=== PATIENT | female | born 1960 | race American Indian/Alaskan Native ===

== ENCOUNTER 2018-04-15 11:59 | Emergency (ER) | payer OTHER, SELFPAY ==
[2018-04-15 12:14] VITALS: BP 133/82; PULSE 81; RESP 17; TEMP 36.8; O2SAT 99
--- NOTE | 2018-04-15 13:05 | ED.EXTPRO ---
HPI - Extremity Problem <LAURA Aguirre - Last Filed: 04/15/18 21:29> General Chief complaint: Extremity Problem,Nontraumatic Stated complaint: has 3 lumps on lower left leg after surgery last W Time Seen by Provider: 04/15/18 13:05 Source: patient Mode of arrival: ambulatory Limitations: no limitations History of Present Illness HPI Narrative: 57-year-old healthy female that is a nonsmoker here for complaint of having a swelling painful bumps to her left calf area over the past 2-3 days. She denies any trauma to the left calf area. She is or is report that she has a history of having varices to the area. She denies any shortness of breath no chest pain. She does report that she had surgery to her left wrist week and half ago due to a fracture. She is ambulatory into the emergency room. She denies any other concerns or complaints at this timeframe. Review of Systems <LAURA Aguirre - Last Filed: 04/15/18 21:29> Constitutional Denies chills, Denies fever(s), Denies lethargy and Denies weakness Eyes Denies change in vision, Denies eye discharge, Denies irritation and Denies loss of vision Cardiovascular Denies chest pain, Denies irregular heart rhythm, Denies lightheadedness, Denies palpitations, Denies dyspnea, Denies dyspnea on exertion and Denies orthopnea Respiratory Denies cough, Denies dyspnea, Denies dyspnea on exertion and Denies wheezing Genitourinary Denies hematuria, Denies flank pain, Denies urinary incontinence and Denies urinary urgency Musculoskeletal Comments: Pain swelling to left calf Integumentary/Breasts Denies pruritus, Denies erythema, Denies rash and Denies wounds Neurologic Denies confusion, Denies loss of vision and Denies weakness Psychiatric Denies anxiety, Denies confusion, Denies depression, Denies homicidal ideation and Denies suicidal ideation Endocrine Denies palpitations Hematologic/Lymphatic Denies easy bruising Allergic/Immunologic Denies wheezing PFSH <LAURA Aguirre - Last Filed: 04/15/18 21:29> Social History Smoking Status: Never smoker Social History Smoking Status: Never smoker Exam <LAURA Aguirre - Last Filed: 04/15/18 21:29> Initial Vital Signs Initial Vital Signs: Vital Signs Temperature 98.3 F 04/15/18 12:14 Pulse Rate 81 04/15/18 12:14 Respiratory Rate 17 04/15/18 12:14 Blood Pressure 133/82 04/15/18 12:14 Pulse Oximetry 99 04/15/18 12:14 Const General: cooperative and well developed Nutritional Appearance: well nourished Orientation: alert, awake, oriented x3 and not confused [facility] Mouth: oral mucosae normal and moist mucous membranes Eyes Conjunctivae: conjunctivae normal Sclera: sclerae normal Pupils: PERRL EOM: EOM intact bilaterally Resp Effort & Inspection: normal respiratory effort, able to speak in complete sentences, no respiratory distress and no use of accessory muscles Auscultation: clear to auscultation bilaterally, no rales, no rhonchi and no wheezes Cardio Rate: regular rate Rhythm: regular rhythm Heart Sounds: no click, no gallops, no murmurs and no rubs Pulses: normal peripheral pulses Skin General: no rashes or lesions noted, No jaundice and No petechiae Neuro General: alert, oriented x3, gait normal and no focal motor deficits Speech: speech normal Extrem Other: left calf area with raise erythematous lesions in area of varicose veins. erythema is limited to the raise lesions. No signs of infection. Distal sensation is intact. Distal pulses are intact. Distal range of motion is intact. Homans sign is negative. <Sarbjit Polanco DO - Last Filed: 04/20/18 07:35> Initial Vital Signs Initial Vital Signs: Vital Signs Temperature 98.3 F 04/15/18 12:14 Pulse Rate 81 04/15/18 12:14 Respiratory Rate 17 04/15/18 12:14 Blood Pressure 133/82 04/15/18 12:14 Pulse Oximetry 99 04/15/18 12:14 Course <LAURA Aguirre - Last Filed: 04/15/18 21:29> Orders Ordered: ED Orders 04/15/18 13:10 perip venous low extrem lt Stat Vital Signs - 8 hr 04/15/18 12:14 Temperature 98.3 F Pulse Rate 81 Respiratory Rate 17 Blood Pressure 133/82 Pulse Oximetry 99 <Sarbjit Polanco DO - Last Filed: 04/20/18 07:35> Orders Ordered: ED Orders 04/15/18 13:10 US periph venous low extrem lt Stat Vital Signs - 8 hr 04/15/18 12:14 Temperature 98.3 F Pulse Rate 81 Respiratory Rate 17 Blood Pressure 133/82 Pulse Oximetry 99 MDM - Extremity (Nontraumatic) <LAURA Aguirre - Last Filed: 04/15/18 21:29> Imaging Data Venous US: Radiologist's impression: [address] [address] Ultrasound Report Signed Patient: Annette Kirkpatrick#: [id number] : 2Acct:[id number] Age/Sex: 57 / FDate of Service: 04/15/18 Loc: ED Accession Number: [id number] Procedure: US periph venous low extrem lt Ordering Provider: Yosi Stokes PROCEDURE: US PERIPH VENOUS LOW EXTREM LT INDICATIONS: ERYTHEMA PAIN AND SWELLING TO LEFT CALF TECHNIQUE: Real-time imaging, as well as color and pulse Doppler interrogation, were performed of the lower extremity deep veins from the inguinal ligament to the popliteal fossa. COMPARISON: None. FINDINGS: The deep veins are normally compressible, and free of intraluminal thrombus. Color and pulse Doppler demonstrate normal phasic intraluminal flow. There is normal augmentation response to distal compression maneuver. Note is made of several varicosities with superficial vein thrombosis associated. IMPRESSION: No DVT found but there are several varicosities with superficial venous thrombosis. Dictated by: Jose Gilliland M.D. on 04/15/2018 at 14:01 Approved by: Jose Gilliland M.D. on 04/15/2018 at 14:04 [facility] Narrative Medical decision making narrative: Ultrasound of the left lower extremity was obtained was negative for any DVT. There are several varicosities that are seen with superficial venous thrombosis. Will treat conservatively with over the counter ibuprofen and warm moist compresses a few times a day over the next several days. Follow up with primary care provider next week. Return emergency room for any worsening symptoms. Discharge Plan Departure Patient Disposition: Home Clinical Impression: Superficial thrombophlebitis Qualifiers: Superficial thrombophlebitis-Involved body area: lower extremity Laterality: left Qualified Code(s): I80.02 - Phlebitis and thrombophlebitis of superficial vessels of left lower extremity Discharge Date/Time: 04/15/18 14:44 Interventions: ED Discharge Assessment Last Done: 04/15/18 14:28 Instructions: DI for Superficial Thrombophlebitis Activity Restrictions/Additional Instructions: ultrasound left lower extremity was obtained and was negative for any deep clots. There are some superficial clots in the area of the varicosities. use [id number] ibuprofen as needed for any discomfort and anti-inflammatory effects. Warm moist compresses to the area a few times a day over the next few days. Follow up with her primary care provider next week for re-evaluation. For any worsening symptoms return to the emergency room. Referrals: [facility] [Provider Group] <Sarbjit Polanco DO - Last Filed: 04/20/18 07:35> [place] ED Attending Deepali Attestation: I was available for consultation during this patient's emergency department encounter
--- NOTE | 2018-04-15 13:10 | DI.US.S_ITS ---
PROCEDURE: US PERIPH VENOUS LOW EXTREM LT INDICATIONS: ERYTHEMA PAIN AND SWELLING TO LEFT CALF TECHNIQUE: Real-time imaging, as well as color and pulse Doppler interrogation, were performed of the lower extremity deep veins from the inguinal ligament to the popliteal fossa. COMPARISON: None. FINDINGS: The deep veins are normally compressible, and free of intraluminal thrombus. Color and pulse Doppler demonstrate normal phasic intraluminal flow. There is normal augmentation response to distal compression maneuver. Note is made of several varicosities with superficial vein thrombosis associated. IMPRESSION: No DVT found but there are several varicosities with superficial venous thrombosis. Dictated by: Jose Gilliland M.D. on 04/15/2018 at 14:01 Approved by: Jose Gilliland M.D. on 04/15/2018 at 14:04
--- NOTE | 2018-04-15 14:22 | ED_ITS ---
HPI - Extremity Problem <LAURA Aguirre - Last Filed: 04/15/18 21:29> General Chief complaint: Extremity Problem,Nontraumatic Stated complaint: has 3 lumps on lower left leg after surgery last W Time Seen by Provider: 04/15/18 13:05 Source: patient Mode of arrival: ambulatory Limitations: no limitations History of Present Illness HPI Narrative: 57-year-old healthy female that is a nonsmoker here for complaint of having a swelling painful bumps to her left calf area over the past 2-3 days. She denies any trauma to the left calf area. She is or is report that she has a history of having varices to the area. She denies any shortness of breath no chest pain. She does report that she had surgery to her left wrist week and half ago due to a fracture. She is ambulatory into the emergency room. She denies any other concerns or complaints at this timeframe. Review of Systems <LAURA Aguirre - Last Filed: 04/15/18 21:29> Constitutional Denies chills, Denies fever(s), Denies lethargy and Denies weakness Eyes Denies change in vision, Denies eye discharge, Denies irritation and Denies loss of vision Cardiovascular Denies chest pain, Denies irregular heart rhythm, Denies lightheadedness, Denies palpitations, Denies dyspnea, Denies dyspnea on exertion and Denies orthopnea Respiratory Denies cough, Denies dyspnea, Denies dyspnea on exertion and Denies wheezing Genitourinary Denies hematuria, Denies flank pain, Denies urinary incontinence and Denies urinary urgency Musculoskeletal Comments: Pain swelling to left calf Integumentary/Breasts Denies pruritus, Denies erythema, Denies rash and Denies wounds Neurologic Denies confusion, Denies loss of vision and Denies weakness Psychiatric Denies anxiety, Denies confusion, Denies depression, Denies homicidal ideation and Denies suicidal ideation Endocrine Denies palpitations Hematologic/Lymphatic Denies easy bruising Allergic/Immunologic Denies wheezing PFSH <LAURA Aguirre - Last Filed: 04/15/18 21:29> Social History Smoking Status: Never smoker Social History Smoking Status: Never smoker Exam <LAURA Aguirre - Last Filed: 04/15/18 21:29> Initial Vital Signs Initial Vital Signs: Vital Signs Temperature 98.3 F 04/15/18 12:14 Pulse Rate 81 04/15/18 12:14 Respiratory Rate 17 04/15/18 12:14 Blood Pressure 133/82 04/15/18 12:14 Pulse Oximetry 99 04/15/18 12:14 Const General: cooperative and well developed Nutritional Appearance: well nourished Orientation: alert, awake, oriented x3 and not confused [facility] Mouth: oral mucosae normal and moist mucous membranes Eyes Conjunctivae: conjunctivae normal Sclera: sclerae normal Pupils: PERRL EOM: EOM intact bilaterally Resp Effort & Inspection: normal respiratory effort, able to speak in complete sentences, no respiratory distress and no use of accessory muscles Auscultation: clear to auscultation bilaterally, no rales, no rhonchi and no wheezes Cardio Rate: regular rate Rhythm: regular rhythm Heart Sounds: no click, no gallops, no murmurs and no rubs Pulses: normal peripheral pulses Skin General: no rashes or lesions noted, No jaundice and No petechiae Neuro General: alert, oriented x3, gait normal and no focal motor deficits Speech: speech normal Extrem Other: left calf area with raise erythematous lesions in area of varicose veins. erythema is limited to the raise lesions. No signs of infection. Distal sensation is intact. Distal pulses are intact. Distal range of motion is intact. Homans sign is negative. <Sarbjit Polanco DO - Last Filed: 04/20/18 07:35> Initial Vital Signs Initial Vital Signs: Vital Signs Temperature 98.3 F 04/15/18 12:14 Pulse Rate 81 04/15/18 12:14 Respiratory Rate 17 04/15/18 12:14 Blood Pressure 133/82 04/15/18 12:14 Pulse Oximetry 99 04/15/18 12:14 Course <LAURA Aguirre - Last Filed: 04/15/18 21:29> Orders Ordered: ED Orders 04/15/18 13:10 perip venous low extrem lt Stat Vital Signs - 8 hr 04/15/18 12:14 Temperature 98.3 F Pulse Rate 81 Respiratory Rate 17 Blood Pressure 133/82 Pulse Oximetry 99 <Sarbjit Polanco DO - Last Filed: 04/20/18 07:35> Orders Ordered: ED Orders 04/15/18 13:10 US periph venous low extrem lt Stat Vital Signs - 8 hr 04/15/18 12:14 Temperature 98.3 F Pulse Rate 81 Respiratory Rate 17 Blood Pressure 133/82 Pulse Oximetry 99 MDM - Extremity (Nontraumatic) <LAURA Aguirre - Last Filed: 04/15/18 21:29> Imaging Data Venous US: Radiologist's impression: [address] [address] Ultrasound Report Signed Patient: Annette Kirkpatrick#: [id number] : 2Acct:[id number] Age/Sex: 57 / FDate of Service: 04/15/18 Loc: ED Accession Number: [id number] Procedure: US periph venous low extrem lt Ordering Provider: Yosi Stokes PROCEDURE: US PERIPH VENOUS LOW EXTREM LT INDICATIONS: ERYTHEMA PAIN AND SWELLING TO LEFT CALF TECHNIQUE: Real-time imaging, as well as color and pulse Doppler interrogation, were performed of the lower extremity deep veins from the inguinal ligament to the popliteal fossa. COMPARISON: None. FINDINGS: The deep veins are normally compressible, and free of intraluminal thrombus. Color and pulse Doppler demonstrate normal phasic intraluminal flow. There is normal augmentation response to distal compression maneuver. Note is made of several varicosities with superficial vein thrombosis associated. IMPRESSION: No DVT found but there are several varicosities with superficial venous thrombosis. Dictated by: Jose Gilliland M.D. on 04/15/2018 at 14:01 Approved by: Jose Gilliland M.D. on 04/15/2018 at 14:04 [facility] Narrative Medical decision making narrative: Ultrasound of the left lower extremity was obtained was negative for any DVT. There are several varicosities that are seen with superficial venous thrombosis. Will treat conservatively with over the counter ibuprofen and warm moist compresses a few times a day over the next several days. Follow up with primary care provider next week. Return emergency room for any worsening symptoms. Discharge Plan Departure Patient Disposition: Home Clinical Impression: Superficial thrombophlebitis Qualifiers: Superficial thrombophlebitis-Involved body area: lower extremity Laterality: left Qualified Code(s): I80.02 - Phlebitis and thrombophlebitis of superficial vessels of left lower extremity Discharge Date/Time: 04/15/18 14:44 Interventions: ED Discharge Assessment Last Done: 04/15/18 14:28 Instructions: DI for Superficial Thrombophlebitis Activity Restrictions/Additional Instructions: ultrasound left lower extremity was obtained and was negative for any deep clots. There are some superficial clots in the area of the varicosities. use [id number] ibuprofen as needed for any discomfort and anti-inflammatory effects. Warm moist compresses to the area a few times a day over the next few days. Follow up with her primary care provider next week for re-evaluation. For any worsening symptoms return to the emergency room. Referrals: [facility] [Provider Group] <Sarbjit Polanco DO - Last Filed: 04/20/18 07:35> [place] ED Attending Deepali Attestation: I was available for consultation during this patient's emergency department encounter
== END 2018-04-15 14:44 | disposition home or self-care (01) ==
PROVIDERS: Emergency Provider Nurse Practitioner Family
DX: I80.02 Phlebitis and thrombophlebitis of superficial vessels of left lower extremity (principal)
CPT/HCPCS: 93971; 99282; 99284

== ENCOUNTER 2022-03-24 10:09 | Emergency (ER) | payer OTHER, SELFPAY ==
[2022-03-24 10:15] VITALS: BP 177/100; PULSE 78; RESP 14; TEMP 36.7; O2SAT 99; BMI 25.0
--- NOTE | 2022-03-24 10:28 | DI.CT.S_ITS ---
PROCEDURE: CT HEAD/BRAIN WO CON INDICATIONS: @90lbs fell on head 1 mo ago, worsening pain/ dizzy TECHNIQUE: Noncontrast 4.5 mm thick angled axial sections acquired from the foramen magnum to the vertex, with coronal and sagittal reformats. For radiation dose reduction, the following was used: automated exposure control, adjustment of mA and/or kV according to patient size. COMPARISON: None. FINDINGS: Image quality: Excellent. CSF spaces: Basal cisterns are patent. No extra-axial fluid collections. The ventricles are symmetric in size and shape. Brain: No intracranial bleeds or masses. There is cerebral volume loss for age, with resultant ventricular and sulcal prominence. There are periventricular and deep white matter chronic small vessel ischemic changes. There is intracranial internal carotid artery atherosclerosis. Skull and face: Calvarium and visualized facial bones appear intact, without suspicious lesions. Sinuses: Fluid is layered within the right maxillary sinus and mucosal thickening is present within the left maxillary sinus. Visualized sinuses and mastoids are otherwise clear. IMPRESSION: 1. No acute intracranial findings. 2. Maxillary sinus fluid and mucosal thickening. Dictated by: Mayra Plaza M.D. on 03/24/2022 at 11:11 Approved by: Mayra Plaza M.D. on 03/24/2022 at 11:12
--- NOTE | 2022-03-24 10:28 | DI.CT.S_ITS ---
/PROCEDURE: CT CERVICAL SPINE WO CON INDICATIONS: @90lbs fell on head 1 mo ago, worsening pain/ dizzy TECHNIQUE: Noncontrast 3 mm thick sections acquired from the skull base to the T4 level. Sagittal and coronal reformats were then constructed. For radiation dose reduction, the following was used: automated exposure control, adjustment of mA and/or kV according to patient size. COMPARISON: None. FINDINGS: Image quality: Excellent. Bones: No fractures or dislocations. Intervertebral disc space narrowing osteophytosis and endplate sclerosis is present. There is some calcification of the posterior longitudinal ligament. Visualized superior ribs are intact. Soft tissues: Prevertebral soft tissues are normal in thickness. No paravertebral hematomas. No apical pneumothoraces. IMPRESSION: 1. No acute cervical spine injury. 2. Degenerative change. Dictated by: Mayra Plaza M.D. on 03/24/2022 at 11:07 Approved by: Mayra Plaza M.D. on 03/24/2022 at 11:10
--- NOTE | 2022-03-24 10:31 | PC.NURSE ---
Discussed concussion s/s w/ patient at triage w/ verbalized understanding.
[2022-03-24] MEDS: OXYCODONE/ACETAMINOPHEN 5/325 TABLET 1 TAB PO (11:00)
[2022-03-24] MEDS: ONDANSETRON 4 MG ODT PO (11:01)
[2022-03-24 12:43] VITALS: BP 142/90; PULSE 71; O2SAT 96
--- NOTE | 2022-03-24 12:49 | ED.HEATRA ---
HPI - Head Injury <Nikhil Jalloh PA-C - Last Filed: 04/01/22 17:55> General Chief complaint: Head Injury Stated complaint: concussion at work a month ago, getting worse Time Seen by Provider: 03/24/22 12:03 Source: patient Mode of arrival: Ambulatory History of Present Illness HPI Narrative: 61-year-old female with no reported past medical history presents to the ED with 5 weeks of headache, postconcussive symptoms. Patient states that she had a 35 lb heavy object fall on her head at work 5 weeks ago, following which she is had pounding headaches, nausea, depression, agitation, fatigue, somnolence. Patient had 1 episode of vomiting right after the injury. Patient's was not seen right after the injury but was seen at a walk-in clinic 10 days ago, no imaging was performed, patient was diagnosed with a concussion. Patient states that she is tried taking Tylenol for the headache with no relief. Patient also endorses some mood changes such as depression, agitation, anxiety and is tearful and wanting to be back to baseline. Patient denies chest pain, shortness of breath, sore throat, rhinorrhea, vision changes, abdominal pain, dysuria, lightheadedness, dizziness, syncope. Patient states that she came to the ED today since she suddenly felt some tingling in her right arm followed by a short episode of palpitations, which she said felt like a panic attack. In the ED, patient states that the tingling and palpitations have resolved. Patient does have a PCP that she normally sees, however they gave her an appointment for April 12. Related Data Previous Rx's Medication Instructions Recorded ondansetron 4 mg disintegrating 4 mg PO Q8H PRN nausea and 03/24/22 tablet vomiting #20 tabs Allergies Allergy/AdvReac Type Severity Reaction Status Date / Time No Known Drug Allergies Allergy Verified 03/24/22 10:28 Review of Systems <Nikhil Jalloh PA-C - Last Filed: 04/01/22 17:55> Review of Systems ROS Unobtainable: All systems reviewed & are unremarkable except as noted in HPI and below Constitutional Constitutional: Denies chills, Reports fatigue, Denies fever(s), Denies frequent falls, Reports headache(s), Reports lethargy and Denies weakness Eyes Eyes: Denies change in vision, Denies eye discharge, Denies irritation and Denies loss of vision ENT Ears, Nose, Mouth, and Throat: Denies change in voice, Denies dizziness, Reports headache(s), Denies neck pain, Denies sore throat and Denies throat swelling Cardiovascular Cardiovascular: Denies chest pain, Denies irregular heart rhythm, Denies lightheadedness, Denies palpitations, Denies dyspnea, Denies dyspnea on exertion and Denies orthopnea Respiratory Respiratory: Denies cough, Denies dyspnea, Denies dyspnea on exertion and Denies wheezing Gastrointestinal Gastrointestinal: Denies abdominal pain, Denies change in bowel habits, Denies diarrhea, Reports nausea and Denies vomiting Genitourinary Genitourinary: Denies hematuria, Denies flank pain, Denies urinary incontinence and Denies urinary urgency Musculoskeletal Musculoskeletal: Denies back pain, Denies muscle weakness, Denies neck pain, Denies numbness and Denies tingling Integumentary/Breasts Skin/Breast: Denies pruritus, Denies erythema, Denies rash and Denies wounds Neurologic Neurologic: Denies behavioral changes, Denies confusion, Denies dizziness, Denies frequent falls, Reports headache(s), Denies loss of vision, Denies numbness, Denies tingling and Denies weakness Psychiatric Psychiatric: Reports anxiety, Denies behavioral changes, Denies confusion, Reports depression, Reports panic attacks, Denies homicidal ideation and Denies suicidal ideation Endocrine Endocrine: Reports fatigue, Denies flushing and Denies palpitations Hematologic/Lymphatic Hematologic/Lymphatic: Denies easy bruising Allergic/Immunologic Allergic/Immunologic: Denies urticaria, Denies throat swelling and Denies wheezing Patient History <Nikhil Jalloh PA-C - Last Filed: 04/01/22 17:55> Social History Smoking Status: Never smoker Smoking Status: Never smoker alcohol intake frequency: holidays/special occasions only Substance Use Type: does not use Exam <Nikhil Jalloh PA-C - Last Filed: 04/01/22 17:55> Narrative Exam Narrative: Const General:?cooperative, healthy appearing and comfortable [facility] Head:?normal to inspection Ears:?hearing grossly normal bilaterally Nose:?external nose normal Face and sinus:?normal facial exam and sinuses nontender Mouth:?oral mucosae normal Throat:?posterior oropharynx normal Eyes General:?appearance normal, both eyes and all related structures Neck Neck:?normal visual inspection and no lymphadenopathy noted Resp Effort & Inspection:?normal respiratory effort Auscultation:?clear to auscultation bilaterally Cardio Rate:?regular rate Rhythm:?regular rhythm Neuro General:?patient alert, patient awake and patient oriented x3; CN 1 through 12 intact bilaterally; gait is normal Initial Vital Signs Initial Vital Signs: Vital Signs Temperature 98.1 F 03/24/22 10:15 Pulse Rate 78 03/24/22 10:15 Respiratory Rate 14 03/24/22 10:15 Blood Pressure 177/100 H 03/24/22 10:15 Pulse Oximetry 99 03/24/22 10:15 Oxygen Delivery Method 03/24/22 10:15 <Michelle Foy DO - Last Filed: 04/04/22 07:33> Initial Vital Signs Initial Vital Signs: Vital Signs Temperature 98.1 F 03/24/22 10:15 Pulse Rate 78 03/24/22 10:15 Respiratory Rate 14 03/24/22 10:15 Blood Pressure 177/100 H 03/24/22 10:15 Pulse Oximetry 99 03/24/22 10:15 Oxygen Delivery Method 03/24/22 10:15 Course <Nikhil Jalloh PA-C - Last Filed: 04/01/22 17:55> Orders Ordered: Discontinued Medications Acetaminophen (Acetaminophen 325 Mg Tablet) 650 mg PO NOW ONE Stop: 03/24/22 12:47 Last Admin: 03/24/22 13:50 Dose: 650 mg Documented By: NAUN Dexamethasone (Dexamethasone 10 Mg/Ml Vial) 10 mg IV NOW ONE Stop: 03/24/22 12:47 Last Admin: 03/24/22 13:51 Dose: 10 mg Documented By: NAUN Diphenhydramine HCl (Diphenhydramine 50 Mg/Ml Vial) 50 mg IV NOW ONE Stop: 03/24/22 12:47 Last Admin: 03/24/22 13:51 Dose: 50 mg Documented By: NAUN Sodium Chloride (Normal Saline 0.9%) 1,000 mls @ 1,000 mls/hr IV BOLUS ONE Stop: 03/24/22 13:45 Last Infusion: 03/24/22 15:09 Dose: 0 mls/hr Documented By: Admin: 03/24/22 13:51 Dose: 1,000 mls/hr Documented By: NAUN Magnesium Sulfate (Magnesium Sulfate) 2 gm in 50 mls @ 150 mls/hr IV NOW ONE Stop: 03/24/22 13:05 Last Infusion: 03/24/22 14:25 Dose: 0 mls/hr Documented By: NAUN Co-signed By: RAEANN Admin: 03/24/22 13:49 Dose: 150 mls/hr Documented By: NAUN Co-signed By: VISHAL Ketorolac Tromethamine (Ketorolac 30 Mg/Ml Vial) 15 mg IV NOW ONE Stop: 03/24/22 12:47 Last Admin: 03/24/22 13:51 Dose: 15 mg Documented By: NAUN Metoclopramide HCl (Metoclopramide 10 Mg/2 Ml Inj) 10 mg IV NOW ONE Stop: 03/24/22 12:47 Last Admin: 03/24/22 13:50 Dose: 10 mg Documented By: NAUN Ondansetron HCl (Ondansetron 4 Mg Odt) 4 mg PO NOW ONE Stop: 03/24/22 10:41 Last Admin: 03/24/22 11:01 Dose: 4 mg Documented By: RAEANN Oxycodone/Acetaminophen (Oxycodone/Acetaminophen 5/325 Tablet) 1 tab PO NOW ONE Stop: 03/24/22 10:41 Last Admin: 03/24/22 11:00 Dose: 1 tab Documented By: RAEANN Vital Signs Vital signs: Vital Signs - 8 hr 03/24/22 10:15 03/24/22 12:43 Temperature 98.1 F Pulse Rate 78 71 Respiratory Rate 14 Blood Pressure 177/100 H 142/90 H Pulse Oximetry 99 96 Oxygen Delivery Method Room Air Room Air <Michelle Foy DO - Last Filed: 04/04/22 07:33> Orders Ordered: Discontinued Medications Acetaminophen (Acetaminophen 325 Mg Tablet) 650 mg PO NOW ONE Stop: 03/24/22 12:47 Last Admin: 03/24/22 13:50 Dose: 650 mg Documented By: NAUN Dexamethasone (Dexamethasone 10 Mg/Ml Vial) 10 mg IV NOW ONE Stop: 03/24/22 12:47 Last Admin: 03/24/22 13:51 Dose: 10 mg Documented By: NAUN Diphenhydramine HCl (Diphenhydramine 50 Mg/Ml Vial) 50 mg IV NOW ONE Stop: 03/24/22 12:47 Last Admin: 03/24/22 13:51 Dose: 50 mg Documented By: NAUN Sodium Chloride (Normal Saline 0.9%) 1,000 mls @ 1,000 mls/hr IV BOLUS ONE Stop: 03/24/22 13:45 Last Infusion: 03/24/22 15:09 Dose: 0 mls/hr Documented By: Admin: 03/24/22 13:51 Dose: 1,000 mls/hr Documented By: NAUN Magnesium Sulfate (Magnesium Sulfate) 2 gm in 50 mls @ 150 mls/hr IV NOW ONE Stop: 03/24/22 13:05 Last Infusion: 03/24/22 14:25 Dose: 0 mls/hr Documented By: NAUN Co-signed By: RAEANN Admin: 03/24/22 13:49 Dose: 150 mls/hr Documented By: NAUN Co-signed By: VISHAL Ketorolac Tromethamine (Ketorolac 30 Mg/Ml Vial) 15 mg IV NOW ONE Stop: 03/24/22 12:47 Last Admin: 03/24/22 13:51 Dose: 15 mg Documented By: NAUN Metoclopramide HCl (Metoclopramide 10 Mg/2 Ml Inj) 10 mg IV NOW ONE Stop: 03/24/22 12:47 Last Admin: 03/24/22 13:50 Dose: 10 mg Documented By: NAUN Ondansetron HCl (Ondansetron 4 Mg Odt) 4 mg PO NOW ONE Stop: 03/24/22 10:41 Last Admin: 03/24/22 11:01 Dose: 4 mg Documented By: RAEANN Oxycodone/Acetaminophen (Oxycodone/Acetaminophen 5/325 Tablet) 1 tab PO NOW ONE Stop: 03/24/22 10:41 Last Admin: 03/24/22 11:00 Dose: 1 tab Documented By: RAEANN Vital Signs Vital signs: Vital Signs - 8 hr 03/24/22 10:15 03/24/22 12:43 Temperature 98.1 F Pulse Rate 78 71 Respiratory Rate 14 Blood Pressure 177/100 H 142/90 H Pulse Oximetry 99 96 Oxygen Delivery Method Room Air Room Air MDM - Head Injury <Nikhil Jalloh PA-C - Last Filed: 04/01/22 17:55> Lab Data Labs: Urine Dip Bedside Urine Glucose Negative Bedside Urine Bilirubin - Negative Bedside Urine Ketone - Negative Urine Specific [place] 1.015 Bedside Urine Occult Blood +/- Bedside Urine pH 6.0 Bedside Urine Protein - Negative Bedside Urine Urobilinogen - Negative Bedside Urine Nitrite - Negative Bedside Urine Leukocytes + 70 Esterase MDM Narrative Medical decision making narrative: 61-year-old female with no reported past medical history presents to the ED with 5 weeks of headache, postconcussive symptoms. Concern for intracranial hemorrhage versus fracture/dislocation versus postconcussive syndrome. CT head, CT C-spine were obtained with no acute findings. Patient was given some Percocet for the headache with minimal relief. Patient still endorses a 7 or 8/10 headache in the ED. will treat headache with Tylenol, Toradol, Reglan, Benadryl, dexamethasone, magnesium, IV fluids. Will reassess. Patient's symptoms significantly improved with medications, headache at 2/10. Patient's symptoms most consistent with a postconcussive syndrome. Discussed symptoms, course, management of postconcussive syndrome. Patient agrees to follow-up with her PCP for further monitoring and treatment. Recommend Tylenol, ibuprofen at home if headache recurs. Recommend good, consistent hydration. Discussed physical and cognitive rest until symptoms improve. ED return precautions were discussed with patient. Patient verbalized understanding. Data collected from:? Patient and her ? Medical records reviewed:??Yes ? Imaging studies independently reviewed: yes ? Disposition: see below, along with detailed discharge instructions that have been reviewed with patient as well as indications for ED re-evaluation and additional outpatient follow up <Michelle Foy DO - Last Filed: 04/04/22 07:33> Lab Data Labs: Urine Dip Bedside Urine Glucose Negative Bedside Urine Bilirubin - Negative Bedside Urine Ketone - Negative Urine Specific [place] 1.015 Bedside Urine Occult Blood +/- Bedside Urine pH 6.0 Bedside Urine Protein - Negative Bedside Urine Urobilinogen - Negative Bedside Urine Nitrite - Negative Bedside Urine Leukocytes + 70 Esterase Discharge Plan Departure Patient Disposition: Home Clinical Impression: Concussion without loss of consciousness Instructions: Concussion, DI for Closed Head Injury Activity Restrictions/Additional Instructions: You were evaluated in the ED today for a headache, concussion. Your CT head and CT C-spine did not show any abnormalities. The symptoms you are experiencing can be attributed to postconcussive syndrome after a head injury. It is common to have a headache, nausea, anxiety, depression, agitation, ringing in the ears, sleepiness, fatigue. Your headache was treated with Tylenol, Toradol, Reglan, Benadryl, dexamethasone, IV fluids, magnesium. Your headache improved significantly with these medications. You may continue to take Tylenol, ibuprofen at home to control the headaches. You may take Zofran for nausea. Please follow-up with your PCP as soon as possible to follow-up on the postconcussive syndrome. Return to the ED if your headache worsens, you are persistently vomiting. Prescriptions: New ondansetron 4 mg tablet,disintegrating 4 mg PO Q8H PRN (Reason: nausea and vomiting) Qty: 20 0RF Referrals: Hailey Clement ARNP [Primary Care Provider] - Stand Alone Forms: Patient Portal/API, Work Release Note <Michelle Foy DO - Last Filed: 04/04/22 07:33> Cosign ED Attending Velmaature Attestation: I was immediately available in the department for consultation. Documentation has been reviewed.
[2022-03-24] MEDS: MAGNESIUM SULFATE 2 GM/50 ML PIGGYBACK IV (13:49)
[2022-03-24] MEDS: ACETAMINOPHEN 325 MG TABLET 650 MG PO (13:50)
[2022-03-24] MEDS: METOCLOPRAMIDE 10 MG/2 ML INJ IV (13:50)
[2022-03-24] MEDS: diphenhydrAMINE 50 MG/ML VIAL IV (13:51)
[2022-03-24] MEDS: KETOROLAC 30 MG/ML VIAL 15 MG IV (13:51)
[2022-03-24] MEDS: DEXAMETHASONE 10 MG/ML VIAL IV (13:51)
[2022-03-24] MEDS: SODIUM CHLORIDE 0.9% 1,000 ML 1000 ML IV (13:51)
[2022-03-24 14:24] VITALS: BP 139/73; PULSE 61; O2SAT 99
== END 2022-03-24 15:13 | disposition home or self-care (01) ==
PROVIDERS: Emergency Provider Student in an Organized Health Care Education/Training Program; PCP Nurse Practitioner Family
DX: F07.81 Postconcussional syndrome (principal)
CPT/HCPCS: 36415; 70450; 72125; 81003; 96361; 96374; 96375; 99284; J1100; J1200; J1885; J2765; J3475